=== PATIENT | female | born 1980 | race Two or more races ===

== ENCOUNTER 2024-06-30 12:03 | Emergency (ER) | payer OTHER, SELFPAY ==
[2024-06-30 12:06] VITALS: BMI 27.3
[2024-06-30 12:21] VITALS: BP 161/88; PULSE 72; RESP 18; TEMP 37.1; O2SAT 100
--- NOTE | 2024-06-30 12:28 | PD.EDADULT ---
ED General RME/HPI General Chief complaint: Neck Pain/Injury Stated complaint: NECK PAIN x 2 DAYS, POKE TO BRAIN ON AND OFF Time Seen by Provider: 06/30/24 12:13 Arrival date/time: 06/30/24 12:03 RME / HPI RME / HPI narrative: 43-year-old female patient came in for evaluation regarding headache. Patient has been having headache on and off since June 20, comes and goes, associated with neck pain, getting worse for the last 2 days. Pain radiates to the right upper extremity described as numbing pain. Denies any dizziness denies any blurry vision denies any other complaints. Patient also denies any trauma to the head or fall. Denies any fever. Patient took to her PCP, and was advised to go to the emergency room for possible CT scan of the head and neck. Related Data Home Medications ?Medication ?Instructions ?Recorded ?Confirmed nitrofurantoin 100 mg PO QDAY 09/25/22 09/25/22 monohydrate/macrocrystals 100 mg capsule (Macrobid) Allergies Allergy/AdvReac Type Severity Reaction Status Date / Time naproxen Allergy Severe Hives Verified 06/30/24 12:10 Review of Systems Review of Systems Narrative Review of Systems: Review of system reviewed and within normal limits except mentioned in HPI ED Exam Narrative Physical exam: VITAL SIGNS: Reviewed. GENERAL APPEARANCE: Alert and interactive, follows commands, no acute distress, HEAD AND FACE: Non-traumatic. ENT: PERRL, pink conjunctivitis, eyelid no trauma, Mucous membrane moist. NECK: Supple, nontender, no nuchal rigidity. CHEST: No tenderness, no crepitus, no paradoxical movement, no retractions. LUNGS: Clear, well ventilated, symmetric, no rales, no wheezing, no ronchi, no stridor, good breath sounds bilaterally. HEART: Regular rate, regular rhythm, no murmur, no gallops. ABDOMEN: Soft, positive bowel sounds, nondistended, no guarding, nontender, no rebound, no masses, RECTAL: Deferred. GENITAL: Deferred. NEUROLOGICAL: Gross motor function intact sensory function intact, Appropriate for age. MUSCULOSKELETAL: low back nontender, full range of motion. EXTREMITIES: Nontender, full range of motion. SKIN: Color pink, dry, no rash, no lacerations, no abrasions, no contusions. LYMPHATICS: Deferred. Course Quality Measures none Orders Category Date Time Status CT cervical spine wo con Stat Exams 06/30/24 12:[address] head/brain wo con Stat Exams 06/30/24 12:30 Completed Vital Signs Vital signs: Vital Signs Temperature 98.7 F 06/30/24 12:21 Pulse Rate 72 06/30/24 12:21 Respiratory Rate 18 06/30/24 12:21 Blood Pressure 161/88 H 06/30/24 12:21 Pulse Oximetry (%) 100 06/30/24 12:21 Oxygen Delivery Method Room Air 06/30/24 12:21 MDM Patient data External records reviewed:: None Clinical information provided by:: patient Social determinants that could affect healthcare access:: none Patient has the following chronic illnesses:: None How is presenting disease/condition affected by chronic disease/condition?: no chronic disease Evaluation data The following diagnostics were reviewed and interpreted by me:: radiology exam(s) Lab and/or radiology exams considered but not ordered:: None Interpretation Summary: CT scan of the head came back unremarkable CT scan of the neck came back unremarkable. Medications Medications considered but not ordered:: None Medication administrations:: None Consultations Consultation(s) initiated? (list below): No Diagnosis Differential Diagnosis ED Complaint MDM: Headache, cervical radiculopathy, neck pain, stress headache Most likely diagnosis given after review of the tests above:: Stress headache, cervical radiculopathy Admission Indicated Admission indicated?: not indicated Explain why admission is indicated or not indicated:: Stable Admission Request Was there a request for admission?: No Disposition Plan Disposition Plan: Discharge Discharge Attestation Discharge Attestation: The patient was given an opportunity to ask questions and understood the discharge instructions. Discharge instructions specifically effects, indications for sooner follow up or return to the emergency department, and the expected course of current diagnosis. Patient condition: Stable Medical Decision Making MDM Narrative MDM Narrative: 43-year-old female patient came in for evaluation regarding headache. Patient has been having headache on and off since June 20, comes and goes, associated with neck pain, getting worse for the last 2 days. Pain radiates to the right upper extremity described as numbing pain. Denies any dizziness denies any blurry vision denies any other complaints. Patient also denies any trauma to the head or fall. Denies any fever. Patient took to her PCP, and was advised to go to the emergency room for possible CT scan of the head and neck. CT scan of the head and neck all came back unremarkable. Results discussed with the patient. Patient was advised to follow-up closely with PCP for further management. Further imaging is not needed at this time. Patient is not having any symptoms prior to discharge. Differential Diagnosis Differential Diagnosis: Headache, cervical radiculopathy, neck pain, stress headache Discharge Plan Plan Patient Disposition: HOME (Self Care) Disposition Comment: Stable Prescriptions/Referrals Prescriptions/Med Rec: No Action nitrofurantoin monohyd/m-cryst [Macrobid] 100 mg capsule 100 mg PO QDAY Referrals: Aicha Burkett MD [Primary Care Provider] - In 1 week Problem List Clinical Impression: Cervical radiculopathy, Stress headache Patient/Caregiver Discharge Instructions Discharge Activity: activity as tolerated Education Materials: ED Radiculopathy, Cervical Additional Instructions: Thank you for the opportunity for serving you today. You are stable for discharged . You are advised to: Follow-up with your PCP in 1 to 2 days Return to ED for worsening of symptoms Increase oral fluids Take [id number] Tylenol or Motrin as needed for pain Print Language: Tuvaluan Stand Alone Forms: Kim Award Info., Patient Portal Info Letter PA/DERIAN Supervising Physician PA/DERIAN Supervising Physician: MD Emilia
--- NOTE | 2024-06-30 12:30 | XR_ITS ---
Examination: CT brain head without contrast. 2-D sagittal coronal reconstructions Date and time of exam:June 30, 2024 2035 hours INDICATIONS: Onset generalized head pain today CTDI: vol (mGy):49.1 DLP: (mGycm):991 Technique: Multiple CT axial sections of the brain have been obtained, 5 mm slice thickness. Contrast has not been administered. 2-D sagittal, coronal reconstructions have been obtained Low dose protocols were performed. One or more of the following dose reduction techniques were used; automated exposure control, adjustment of the mA and/or KV according to patient size, use of iterative reconstruction technique. Findings: No significant ventricular enlargement. Intra-axial or extra-axial hemorrhage density is not seen. No mass effect or midline shift Basal cisterns are not remarkable. Fourth ventricle is midline. Cranial vault intact. Impression: Negative for acute hemorrhage, mass effect or midline shift Advise clinical correlation and follow-up accordingly
--- NOTE | 2024-06-30 12:30 | XR_ITS ---
Examination: CT cervical spine without contrast 2-D sagittal reconstructions 2-D coronal reconstructions 3-D reconstructions. Exam date and time:June 30, 2024 1235 hours INDICATIONS: Patient states pain at the back of the neck today CTDI:vol (mGy) 7.72 DLP: (mGycm) 166 Technique: Multiple 2 mm axial sections of the cervical spine have been obtained. The coronal and sagittal reconstructions have been obtained. 3-D reconstructions have been obtained. Low dose protocols were performed. One or more of the following dose reduction techniques were used; automated exposure control, adjustment of the mA and/or KV according to patient size, use of iterative reconstruction technique. Findings: Axial sections demonstrate intact base of the skull. C1 exhibit satisfactory relationship to the odontoid. No acute cervical vertebral body fracture seen. Alignment posterior spinous processes satisfactory. Early degenerative disc disease C4-C5 with minimal posterior osteophyte formation No focal soft tissue disc protrusion noted Impression: No acute cervical fracture. As clinically warranted, MRI cervical spine without contrast follow-up would best assess for acquired soft tissue spinal stenosis
== END 2024-06-30 13:48 | disposition home or self-care (01) ==
PROVIDERS: Emergency Provider Emergency Medicine; PCP Internal Medicine
DX: M54.12 Radiculopathy, cervical region (principal); R51.9 Headache, unspecified
CPT/HCPCS: 70450; 72125; 99284